=== PATIENT | male | born 1940 | race Caucasian/White ===

== ENCOUNTER → 2018-04-23 10:29 | Outpatient (CLI) | payer MEDICARE, MEDICAID, SELFPAY ==
--- NOTE | 2018-04-23 10:14 | DI.REPORT_ITS ---
SYMPTOM/DIAGNOSIS: DEFORMITY RIGHT FOOT: A hallux valgus deformity is demonstrated. There are degenerative changes involving the first metatarsal phalangeal joint. 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 Vascular calcifications are identified raising the possibility of diabetes in this patient.
== END ==
PROVIDERS: PCP Family Medicine; Visit Provider Orthopaedic Surgery
DX: M20.41 Other hammer toe(s) (acquired), right foot (principal); M20.11 Hallux valgus (acquired), right foot; M19.071 Primary osteoarthritis, right ankle and foot
CPT/HCPCS: 73630; 99214

== ENCOUNTER 2018-06-17 11:25 | Outpatient (REF) | payer MEDICARE, SELFPAY | END 2018-06-17 11:45 | LOC: LBN 11:25 | PROVIDERS: PCP Family Medicine; Visit Provider Family Medicine | DX: E03.9 Hypothyroidism, unspecified (principal); Z53.8 Procedure and treatment not carried out for other reasons | CPT/HCPCS: 84443 ==

== ENCOUNTER 2018-06-18 08:09 | Outpatient (REF) | payer MEDICARE, SELFPAY ==
[2018-06-18 08:56] LABS: TSH (W/Ref FT4) 5.48 uIU/mL (0.358-3.74)
[2018-06-18 09:14] LABS: FREE T4 1.05 ng/dL (0.76-1.46)
== END 2018-06-18 08:29 ==
LOC: LBN 08:09
PROVIDERS: PCP Family Medicine; Visit Provider Family Medicine
DX: R63.4 Abnormal weight loss (principal)
CPT/HCPCS: 84439; 84443

== ENCOUNTER 2018-12-23 14:50 | Outpatient (REF) | payer MEDICARE, SELFPAY | END 2018-12-23 15:10 | LOC: LBN 14:50 | PROVIDERS: PCP Family Medicine; Visit Provider Podiatrist | DX: L08.89 Other specified local infections of the skin and subcutaneous tissue (principal) | CPT/HCPCS: 87077; 87070; 87186; 87205 ==

== ENCOUNTER 2019-05-27 13:30 | Emergency (ER) | payer MEDICARE, MEDICAID, SELFPAY ==
[2019-05-27 13:38] VITALS: BP 110/53; PULSE 75; RESP 16; TEMP 37.1; O2SAT 94
--- NOTE | 2019-05-27 13:55 | DI.RAD_ITS ---
SYMPTOMS/DIAGNOSIS: SWELLING LEFT WRIST: No fracture or dislocation is seen. There is soft tissue swelling around the carpal region. There are severe degenerative changes of the radiocarpal joint and at the scaphoid, trapezium-trapezoid and trapezium-1st metacarpal joint. There is deformity of the distal ulna, likely secondary to an old fracture. Vascular calcifications are seen. There are no gross bony erosions. IMPRESSION: Severe degenerative changes and soft tissue swelling. No evidence of fracture.
--- NOTE | 2019-05-27 14:53 | W.ED.GENAD ---
Discharge Plan Disposition Patient Disposition: [facility] ([facility] Condition: Good Discharge Details Chief Complaint: Orthopedic Clinical Impression: Arthritis Primary Care Provider: Elisha Mason ED Provider: Erica Gurrola Home Meds and New Rx's Prescriptions: Continued montelukast [Singulair] 10 MG tablet 10 mg PO DAILY Qty: 30 RF: 6 multivitamin [Daily Vitamin] 1 EACH tablet 1 ea PO DAILY RF: 0 cholecalciferol (vitamin D3) 1,000 UNIT capsule 50,000 unit PO DAILY RF: 0 nitroglycerin [Nitrostat] 0.4 MG tablet, sublingual 0.4 mg Sublingual Q5 MIN PRN X3 PRNQty: 0 RF: 0 sulfamethoxazole-trimethoprim 1 TAB tablet 1 ea PO BID RF: 0 acetaminophen [Tylenol] 325 MG tablet 650 mg PO Q4H PRN PRNRF: 0 Discharge Instructions Instructions: Arthritis (ED) Additional Instructions: Use your splint for support until for 1 week Ice to the wrist or swelling and pain. Tylenol for soreness if needed. Follow-up with orthopedic doctor for reevaluation. X-ray revealing severe arthritis and an old fracture. 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 Return for any worsening or concerns sooner if needed Referrals: Watson Snow MD [ [facility] STAFF PHYSICIAN] - Medical Decision Making Patient presents from rehab for concern of left wrist swelling. Patient did have a fall 1 week ago after which a few days began to develop mild swelling of the left wrist. Patient noted to have on exam mild erythema and warmth associated with swelling at the left wrist. On x-ray patient has severe arthritis of the wrist with an old fracture of the ulnar styloid. It is conceptual that the patient may have refractured this area however there is no clear fracture line noted on the x-ray. Patient's exam is consistent with arthritis. Patient has no fever, is in no distress and per rehab is acting at his baseline. There is nothing to indicate septic infection at this time. I spoke with my attending regarding patient's presentation, he recommends hold on any lab work at this time as there is no indicators of infection. And he agrees that conservative management of wrist including splinting and arthritis management is appropriate. I did provide orthopedic referral if wrist continues to be bothersome. I also spoke with the nursing staff and advised for any increase in fever, ill feeling or changes from his baseline to have him return for reevaluation. HPI General Date/Time Provider Initiated Documentation: 05/27/19 13:36. HPI Narrative: Nonverbal patient presents from rehab facility for left wrist swelling which was noted. I spoke with the patient's primary nurse at the rehab facility who reports patient does very typically have falls. There are multiple stories at the rehab facility but she believes the patient was found on the ground and questions a fall which again is not atypical for this patient. This report occurred approximately 10 days ago. Patient was due to have an x-ray of his left wrist tomorrow as there was noted swelling and redness to the left wrist, however facility preferred that he had x-ray today. Nurse reports initially there was no clear swelling to the left wrist after his fall. Noted onset in the last week. Patient has otherwise been at his baseline, eating and drinking without difficulty. No obvious changes in his activities of daily living. Activities have been similar. No obvious fevers. Compliant with his medications. We reviewed the vital signs which were obtained in the ER today and these are very typical for this patient. His O2 sats typically range between 90 and 94. Patient appears in no apparent distress at this time via ambulance. History obtained from EMS and nurse at his rehab facility given patient's limitation Related Data Home Medications Medication Instructions Recorded Confirmed montelukast [Singulair] 10 mg PO DAILY #30 tab-cap 04/27/14 05/27/19 nitroglycerin [Nitrostat] 0.4 mg SUBLINGUAL Q5 MIN PRN X3 06/28/14 05/27/19 PRN #0 cholecalciferol (vitamin D3) 50,000 unit PO DAILY 08/02/14 05/27/19 multivitamin [Daily Vitamin] 1 ea PO DAILY 08/02/14 05/27/19 acetaminophen [Tylenol] 650 mg PO Q4H PRN PRN 01/21/18 05/27/19 sulfamethoxazole-trimethoprim 1 ea PO BID 01/21/18 05/27/19 Previous Rx's Medication Instructions Recorded nitroglycerin [Nitrostat] 0.4 mg SUBLINGUAL Q5 MIN PRN X3 06/28/14 PRN #0 Allergies Allergy/AdvReac Type Severity Reaction Status Date / Time influenza virus vaccine, Allergy Unknown Unverified 05/27/19 13:42 specific [influenza virus vacc,specific] oxycodone Allergy Unknown Unverified 05/27/19 13:42 Penicillins Allergy Unknown Unverified 05/27/19 13:42 donepezil HCl [From Aricept] AdvReac Severe GI upset, Unverified 05/27/19 13:42 diarrhea General Stated Complaint: Orthopedic TEO: 4 Review of Systems Review of Systems Unobtainable due to mental condition [facility] Surgical History 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 Well hydrated. Alert and alert. HENMT: Head nomocephalic, normal to inspection. Atraumatic. Hearing grossly normal. EYES: General normal appearance. Alignment normal. Eyelids normal. Conjunctiva normal. NECK: Normal visual inspection. FROM. Trachea midline. No Midline tenderness. CHEST: Normal insepection of the chest. RESP: Normal respiratory effort. Speaking full sentences. No cough. No audible wheezing. No retractions. CARDIO: No JVD. Abdomen;. No apparent tenderness with palpation of the abdomen in all 4 quadrants MUSCULOSKELETAL: Normal Gait. FROM of all extremities. Patient is mildly contracted at wrists/hands bilaterally. Left wrist is noted to be mildly warm and erythematous. No significant complaints of pain with range of motion. Patient does have mild swelling present at the left wrist with both radial and ulnar aspects. Pulses are intact. Patient is quite kyphotic SKIN: Normal. Dry. No rashes. NEURO: Alert and awake. Speech clear. PSYCH: Normal affect. Cooperative. Course Vital Signs Temperature 37.1 C 05/27/19 13:38 Pulse 75 05/27/19 13:38 Respiratory Rate 16 05/27/19 13:38 Blood Pressure 110/53 L 05/27/19 13:38 Pulse Oximetry 94 L 05/27/19 13:38 Temperature 37.1 C 05/27/19 13:38 Temperature Source Tympanic 05/27/19 13:38 Pulse 75 05/27/19 13:38 Respiratory Rate 16 05/27/19 13:38 Respiratory Effort 05/27/19 13:46 Blood Pressure 110/53 L 05/27/19 13:38 Blood Pressure Position Sitting 05/27/19 13:38 Pulse Oximetry 94 L 05/27/19 13:38 Oxygen Delivery Method Room Air 05/27/19 13:38 Oxygen Flow Rate 0 05/27/19 13:38 Comment 05/27/19 13:38
== END 2019-05-27 16:32 | disposition intermediate care facility (04) ==
LOC: ER 16:28
PROVIDERS: Emergency Provider Physician Assistant; PCP Family Medicine
DX: M19.032 Primary osteoarthritis, left wrist (principal); W05.0XXA Fall from non-moving wheelchair, initial encounter; Y92.129 Unspecified place in nursing home as the place of occurrence of the external cause
CPT/HCPCS: 29125; 99283; 73110; L3908

== ENCOUNTER 2019-05-28 12:00 | Outpatient (REF) | payer MEDICARE, MEDICAID, SELFPAY ==
[2019-05-28 12:18] LABS: Uric Acid 5.8 mg/dL (3.5-7.2)
[2019-05-28 12:21] LABS: Abs Immature Grans 0.02 k/cumm (0.0-0.09); Absolute Basophil Count 0.02 k/cumm (0.0-0.2); Absolute Eosinophil Count 0.01 k/cumm (0.0-0.7); Absolute Lymphocyte Count 0.51 k/cumm (1.2-3.4); Absolute Monocyte Count 0.94 k/cumm (0.11-0.7); Absolute Neutrophil Count 8.83 k/cumm (1.2-6.7); Basophils % 0.2; Eosinophils % 0.1; HCT 41.9 % (40.0-50.0); HGB 13.3 g/dL (13.5-17.5); Immature Grans % 0.2; Lymphocytes % 4.9; Mean Corp. HGB Concentration 31.7 g/dL (32.0-36.0); Mean Corpuscular Hemoglobin 31.7 pg (27.0-33.0); Mean Corpuscular Volume 99.8 fL (80-95); Mean Platelet Volume 10.9 fL (8.0-11.0); Monocytes % 9.1; Neutrophils % 85.5; Platelet Count 250 x1000/uL (130-400); RBC Distribution Width 14.3 % (11.8-14.1); White Blood Cell Count 10.33 k/cumm (4.4-10.8)
[2019-05-28 14:23] LABS: Anion Gap 9.6 mmol/L (3-11); BUN 25 mg/dL (7-18); CO2 27.4 mmol/L (21.0-32.0); CREATININE 0.99 mg/dL (0.70-1.30); Calcium 9.4 mg/dL (8.5-10.1); Chloride 117 mmol/L (98-107); Glucose 96 mg/dL (70-100); Potassium 3.5 mmol/L (3.5-5.1); Sodium 154 mmol/L (136-145)
== END 2019-05-28 12:20 ==
LOC: LBN 12:00
PROVIDERS: PCP Family Medicine; Visit Provider Nurse Practitioner Gerontology
DX: R50.9 Fever, unspecified (principal); R41.82 Altered mental status, unspecified
CPT/HCPCS: 80048; 84550; 85025

== ENCOUNTER 2019-06-02 16:27 | Outpatient (REF) | payer MEDICARE, MEDICAID, SELFPAY ==
[2019-06-02 15:00] LABS: Abs Immature Grans 0.05 k/cumm (0.0-0.09); Absolute Basophil Count 0.03 k/cumm (0.0-0.2); Absolute Eosinophil Count 0.06 k/cumm (0.0-0.7); Absolute Lymphocyte Count 0.83 k/cumm (1.2-3.4); Absolute Monocyte Count 0.39 k/cumm (0.11-0.7); Absolute Neutrophil Count 9.18 k/cumm (1.2-6.7); Basophils % 0.3; Eosinophils % 0.6; HCT 42.2 % (40.0-50.0); Immature Grans % 0.5; Lymphocytes % 7.9; Mean Corp. HGB Concentration 30.8 g/dL (32.0-36.0); Mean Corpuscular Hemoglobin 31.9 pg (27.0-33.0); Mean Corpuscular Volume 103.4 fL (80-95); Mean Platelet Volume 12.6 fL (8.0-11.0); Monocytes % 3.7; Platelet Count 267 x1000/uL (130-400); RBC 4.08 m/cumm (4.50-6.00); RBC Distribution Width 14.6 % (11.8-14.1); White Blood Cell Count 10.54 k/cumm (4.4-10.8)
[2019-06-02 15:04] LABS: ALT 75 U/L (16-63); AST 84 U/L (15-37); Albumin 2.2 g/dL (3.4-5.0); Alkaline Phosphatase 148 U/L (46-116); Anion Gap 12.8 mmol/L (3-11); BUN 54 mg/dL (7-18); Bilirubin, Total 0.8 mg/dL (0.2-1.0); CO2 27.2 mmol/L (21.0-32.0); CREATININE 1.24 mg/dL (0.70-1.30); Calcium 9.4 mg/dL (8.5-10.1); Chloride 118 mmol/L (98-107); Estimated GFR 56.38 (mL/min/1.73m2); Glucose 203 mg/dL (70-100); Potassium 4.3 mmol/L (3.5-5.1); Total Protein 7.1 g/dL (6.4-8.2)
[2019-06-02 15:10] LABS: Sodium 158 mmol/L (136-145)
== END 2019-06-02 16:47 ==
LOC: LBN 16:27
PROVIDERS: PCP Family Medicine; Visit Provider Nurse Practitioner Gerontology
DX: I10 Essential (primary) hypertension (principal); R50.9 Fever, unspecified
CPT/HCPCS: 80053; 85025